=== PATIENT | female | born 2000 | race Caucasian/White ===

== ENCOUNTER 2020-10-02 21:23 | Emergency (ER) | payer BC ==
[2020-10-02 22:43] LABS: APPEARANCE,URINE CLEAR; BILIRUBIN,URINE NEGATIVE (NEGATIVE); COLOR,URINE STRAW; GLUCOSE, URINE NEGATIVE (NEGATIVE); KETONES,URINE NEGATIVE (NEGATIVE); LEUKOCYTE ESTERASE,URINE NEGATIVE (NEGATIVE); NITRITE,URINE NEGATIVE (NEGATIVE); PROTEIN,URINE NEGATIVE (NEGATIVE); URINE SPECIFIC GRAVITY 1.009; UROBILINOGEN,URINE NEGATIVE mg/dL (<2.0)
--- NOTE | 2020-10-02 23:02 | ER Document Report ---
ED Medical Screen (RME) - General Chief Complaint: Lower Abdominal Pain Stated Complaint: LOWER ABDOMINAL PAIN Time Seen by Provider: 10/02/20 22:08 Mode of Arrival: Ambulatory Information source: Patient Notes: Patient is a 18-year-old female comes emergency room complaining of a 1 and half hour onset of sharp lower pelvic pain. Patient states that it occurred just after eating at a [place] restaurant. She denies any nausea or vomiting or fevers. Patient states that the pain is gotten slightly better but is still uncomfortable. Patient denies any other medical problems. Patient does state that she has had feelings of having to urinate a lot. Physical examination: Patient is a well-nourished well-developed 20-year-old female no apparent distress on examination tonight. Cardiac: Patient displays a regular rate and rhythm on monitor of 68 bpm. No murmurs were auscultated. Lungs: Bilateral breath sounds increased clear auscultation. Abdomen: In the sitting position patient has no tenderness in the upper or lower quadrants most all the patient's discomfort is suprapubically. This is to palpation in a sitting position. No flank pain was elicited. I discussed with patient that we could just run a urine analysis and if there was a UTI we could treat it and send her home if there was not then we would rediscuss it. Her urine was clean. Given that I went back and discussed the case with the patient and she is still having discomfort suprapubically. And wants further evaluation. Patient does admit that she is sexually active but with females only. I entertain the idea of doing an ultrasound but more patient's discomfort is at this point I rather have it provider lay hands on her in supine position the does not appear to be a torsion type of pain. I have greeted and performed a rapid initial assessment of this patient. A comprehensive ED assessment and evaluation of the patient, analysis of test results and completion of the medical decision making process will be conducted by additional ED providers. Dictation of this chart was performed using voice recognition software; therefore, there may be some unintended grammatical errors. - Related Data Allergies/Adverse Reactions: No Known Allergies Allergy (Verified 10/02/20 22:05) Physical Exam - Vital signs Vitals: Temp Pulse Resp BP Pulse Ox 98.1 F 68 16 134/82 H 100 10/02/20 21:29 10/02/20 21:29 10/02/20 21:29 10/02/20 21:29 10/02/20 21:29 Course - Vital Signs Vital signs: Temp Pulse Resp BP Pulse Ox 98.1 F 68 16 134/82 H 100 10/02/20 21:29 10/02/20 21:29 10/02/20 21:29 10/02/20 21:29 10/02/20 21:29
[2020-10-02 23:29] LABS: ABSOLUTE EOSINOPHILS # (AUTO) 0.4 10^3/uL (0.0-0.6); ABSOLUTE LYMPHOCYTES (AUTO) 2.9 10^3/uL (0.5-4.7); ABSOLUTE MONOCYTES (AUTO) 0.6 10^3/uL (0.1-1.4); BASOPHILS % (AUTO) 0.5 % (0-2); EOSINOPHILS % (AUTO) 4.8 % (0-6); HEMATOCRIT 37.2 % (36.0-47.0); HEMOGLOBIN 12.5 g/dL (12.0-15.5); LYMPHOCYTES % (AUTO) 32.5 % (13-45); MEAN CORPUSCULAR HEMOGLOBIN 28.3 pg (27.0-33.4); MEAN CORPUSCULAR HGB CONC 33.6 g/dL (32.0-36.0); MEAN CORPUSCULAR VOLUME 84 fl (80-97); MONOCYTES % (AUTO) 6.3 % (3-13); PLATELET COUNT 240 10^3/uL (150-450); RED BLOOD COUNT 4.41 10^6/uL (3.72-5.28); RED CELL DISTRIBUTION WIDTH 15.2 % (11.5-14.0); SEGMENTED NEUTROPHILS % (AUTO) 55.9 % (42-78); TOTAL CELLS COUNTED % (AUTO) 100 %
--- NOTE | 2020-10-02 23:49 | RADIOLOGY REPORT (SQ) ---
EXAM DESCRIPTION: XR ABDOMEN 1 VIEW (KUB) COMPLETED DATE/TME: 10/02/2020 23:24 CLINICAL HISTORY: 20 years, Female, Pelvic pain COMPARISON: None. NUMBER OF VIEWS: 1 TECHNIQUE: Single AP view of the abdomen was obtained. LIMITATIONS: None. FINDINGS: The bowel gas pattern is within normal limits. There is no evidence of pneumoperitoneum or abnormal mass effect. No abnormal calcifications are seen. There is no bony abnormality identified. IMPRESSION: No acute abnormality as above. copyright 2010 Location- All Rights Reserved
[2020-10-02 23:50] LABS: ALBUMIN 4.6 g/dL (3.5-5.0); ALKALINE PHOSPHATASE 57 U/L (38-126); ANION GAP 8 (5-19); ASPARTATE AMINO TRANSFERASE 22 U/L (14-36); BILIRUBIN,DIRECT 0.1 mg/dL (0.0-0.4); BILIRUBIN,TOTAL 0.3 mg/dL (0.2-1.3); BLOOD UREA NITROGEN 14 mg/dL (7-20); CALCIUM 9.7 mg/dL (8.4-10.2); CARBON DIOXIDE 26 mmol/L (22-30); CHLORIDE 104 mmol/L (98-107); GLUCOSE 83 mg/dL (75-110); POTASSIUM 3.8 mmol/L (3.6-5.0); TOTAL PROTEIN 7.9 g/dL (6.3-8.2)
--- NOTE | 2020-10-03 00:05 | ER Document Report ---
Entered by MEE HARRIS SCRIBE 10/02/20 2282 Acting as scribe for:JUAN C CLEMENT DO ED GI/ - General Chief Complaint: Lower Abdominal Pain Stated Complaint: LOWER ABDOMINAL PAIN Time Seen by Provider: 10/02/20 22:08 Mode of Arrival: Ambulatory Information source: Patient Notes: This 20-year-old female patient presents to the emergency department today with concerns of lower abdominal pain. Patient reports that she was grocery shopping when she developed lower abdominal cramping. She had a normal bowel movement this morning. Her last menstrual period was 2 weeks ago. She denies any cough, congestion, nausea, vomiting, diarrhea, dysuria, vaginal discharge, or known COVID-19 exposure. - Related Data Allergies/Adverse Reactions: No Known Allergies Allergy (Verified 10/02/20 22:05) Past Medical History - General Information source: Patient - Social History Smoking Status: Never Smoker Cigarette use (# per day): No Frequency of alcohol use: None Drug Abuse: None Lives with: Family Family History: Reviewed & Not Pertinent - Medical History Medical History: Negative Surgical Hx: Negative Review of Systems - Review of Systems Constitutional: No symptoms reported EENT: No symptoms reported Cardiovascular: No symptoms reported Respiratory: No symptoms reported Gastrointestinal: See HPI, Abdominal pain. denies: Diarrhea, Nausea, Vomiting Genitourinary: No symptoms reported Female Genitourinary: No symptoms reported Musculoskeletal: No symptoms reported Skin: No symptoms reported Hematologic/Lymphatic: No symptoms reported Neurological/Psychological: No symptoms reported -: Yes All other systems reviewed and negative Physical Exam - Vital signs Vitals: Temp Pulse Resp BP Pulse Ox 98.1 F 68 16 134/82 H 100 10/02/20 21:29 10/02/20 21:29 10/02/20 21:29 10/02/20 21:29 10/02/20 21:29 - Notes Notes: Physical Exam: General: Alert, appears well. HEENT: Normocephalic. Atraumatic. PERRL. Extraocular movements intact. Oropha rynx clear. Neck: Supple. Non-tender. Respiratory: No respiratory distress. Clear and equal breath sounds bilaterally. Cardiovascular: Regular rate and rhythm. Abdominal: Pelvic tenderness to palpation. No distension. Normal Bowel Sounds. Back: No gross abnormalities. Extremities: Moves all four extremities. Upper extremities: Normal inspection. Normal ROM. Lower extremities: Normal inspection. No edema. Normal ROM. Neurological: Normal cognition. AAOx4. Normal speech. Psychological: Normal affect. Normal Mood. Skin: Warm. Dry. Normal color. Course - Re-evaluation Re-evalutation: 10/03/20 00:05 MDM 20 year old with reassuring medical exam and pain is gone when I see her. Discussed return here precautions and she expressed understanding. - Vital Signs Vital signs: Temp Pulse Resp BP Pulse Ox 98.0 F 61 16 106/46 L 100 10/03/20 00:44 10/03/20 00:44 10/03/20 00:44 10/03/20 00:44 10/03/20 00:44 - Laboratory Results Result Diagrams: 10/02/20 23:10 10/02/20 23:10 Laboratory Results Interpreted: 10/02/20 23:10 RDW 15.2 H Critical Laboratory Results Reviewed: No Critical Results - Radiology Results Critical Radiology Results Reviewed: No Critical Results Discharge - Discharge Clinical Impression: Pelvic pain Condition: Stable Disposition: HOME, SELF-CARE Instructions: Abdominal Pain ([facility]), Clear Liquid Diet ([facility]) Additional Instructions: Clear liquids for 24 hours. Rest. No work 10/04 Take tylenol for pain. Please return here for adominal pain, fever other problems Your medicine has been sent to [facility] in [place]. Prescriptions: Dicyclomine HCl [Bentyl 10 mg Capsule] 1 cap PO TID #15 cap Forms: Return to Work I personally performed the services described in the documentation, reviewed and edited the documentation which was dictated to the scribe in my presence, and it accurately records my words and actions.
[2020-10-03 00:48] VITALS: BP 106/46
== END 2020-10-03 00:44 | disposition home or self-care (01) ==
LOC: ER 21:23
DX: R10.2 Pelvic and perineal pain (principal)
CPT/HCPCS: 36415; 74018; 80053; 81001; 81025; 85025; 87086; 99284